=== PATIENT | male | born 1980 ===

== ENCOUNTER 2017-03-30 10:28 | Emergency (ER) | payer OTHER ==
[2017-03-30] MEDS ORDERED: Sodium Chloride 0.9% 1,000 ML IV ONE (10:54)
--- NOTE | 2017-03-30 11:05 | C.PDOC ---
History Of Present Illness 36 yr old male with PMHx of diabetes, presents to the ER with complaints of chest pain and palpitations since yesterday. Patient reports he has been drinking beer for the past 2 days but denies daily use of alcohol, of ho of alcohol abuse. pt also reports mason but denies trauma. . Patient denies fever, nausea, vomiting, abdominal pain, weakness or numbness. Contrary to triage, patient denies having low blood sugar at home, accu check in ED is 287. pt instead reports "was unsure if sugar was high or low". denies long acting insulin usage. info obtain via tranlator Time Seen by Provider: 03/30/17 10:48 Chief Complaint (Nursing): Chest Pain History Per: Patient History/Exam Limitations: no limitations Onset/Duration Of Symptoms: Days (1) Past Medical History Reviewed: Historical Data, Nursing Documentation, Vital Signs Vital Signs: Last Vital Signs Temp 98.8 F 03/30/17 13:02 Pulse 85 03/30/17 13:02 Resp 18 03/30/17 13:02 BP 124/73 03/30/17 13:02 Pulse Ox 98 03/30/17 13:14 Family History: States: No Known Family Hx - Social History Hx Alcohol Use: Yes Hx Substance Use: No - Immunization History Hx Tetanus Toxoid Vaccination: No Hx Influenza Vaccination: No Hx Pneumococcal Vaccination: No Review Of Systems Except As Marked, All Systems Reviewed And Found Negative. Constitutional: Negative for: Fever Cardiovascular: Positive for: Chest Pain, Palpitations Gastrointestinal: Negative for: Nausea, Vomiting, Abdominal Pain Neurological: Negative for: Weakness, Numbness Physical Exam - Physical Exam Appears: Non-toxic, No Acute Distress Skin: Warm, Dry Head: Atraumatic, Normacephalic Oral Mucosa: Moist Neck: Normal, Normal ROM, Supple Chest: Symmetrical, No Tenderness Cardiovascular: Rhythm Regular, No Murmur Respiratory: Normal Breath Sounds, No Rales, No Rhonchi, No Stridor, No Wheezing Extremity: Normal ROM, No Swelling Neurological/Psych: Oriented x3, Normal Speech, Normal Motor ED Course And Treatment - Laboratory Results Result Diagrams: 03/30/17 11:24 03/30/17 11:24 ECG: Interpreted By Me, Viewed By Me ECG Rhythm: Sinus Rhythm ECG Interpretation: Normal Rate From EC (BPM) O2 Sat by Pulse Oximetry: 98 (RA) Pulse Ox Interpretation: Normal - Other Rad CXR X-Ray: Viewed By Me, Read By Radiologist Interpretation: PROCEDURE: CHEST RADIOGRAPH, 1 VIEW. HISTORY: chest pain. COMPARISON: None available. FINDINGS: LUNGS: Mild bibasilar atelectasis. PLEURA: No pneumothorax or pleural fluid seen. CARDIOVASCULAR: Normal. OSSEOUS STRUCTURES: No significant abnormalities. VISUALIZED UPPER ABDOMEN: Normal. OTHER FINDINGS: None. IMPRESSION: Mild bibasilar atelectasis - CT Scan/US CT - Head Other Rad Studies (CT/US): Read By Radiologist, Radiology Report Reviewed CT/US Interpretation: PROCEDURE: CT HEAD WITHOUT CONTRAST. HISTORY: Headache. COMPARISON: None available. TECHNIQUE: Axial computed tomography images were obtained through the head/brain without intravenous contrast. Radiation dose: Total exam DLP = 981.84 mGy-cm. This CT exam was performed using one or more of the following dose reduction techniques: Automated exposure control, adjustment of the mA and/or kV according to patient size, and/ or use of iterative reconstruction technique. FINDINGS: HEMORRHAGE: No acute parenchymal, subarachnoid or extra-axial hemorrhage. BRAIN: No mass effect or edema. No atrophy or chronic microvascular ischemic changes. VENTRICLES: Unremarkable. No hydrocephalus. CALVARIUM: Unremarkable. PARANASAL SINUSES: Unremarkable as visualized. . Minimal mucosal thickening noted within the sphenoid sinus. MASTOID AIR CELLS: Unremarkable as visualized. No inflammatory changes. OTHER FINDINGS: None. IMPRESSION: No acute intracranial hemorrhage. Medical Decision Making Medical Decision Making: pt with atypcial cp/mason/palpiations x 1 day- labs imaging pending PLAN: * CT - Head * CXR * EKG * Alcohol Serum * Drug Screen * Troponin * CBC * CMP * Urinalysis * Sodium Chloride IV * 120:pt reasseseD states pain/palpitations resolved. mason resolved. offered observation in hospital for cp. pt declines specifically requesting d/c. willl dc advise outpt f/u. no tremors noted. neuro intact. Disposition - Disposition Referrals: [facility] [Outside] [facility] [Outside] Ye Platt MD [Staff Provider] - Nolan Rodas MD [Staff Provider] - Disposition: HOME/ ROUTINE Disposition Time: 13:20 Condition: STABLE Additional Instructions: please follow up with your doctor/clinic and specialist. return to er with worsening symptoms or concerns Instructions: Chest Pain (ED), Palpitations (ED), Acute Headache (ED) Print Language: GIBRALTARIAN - Clinical Impression Clinical Impression: Chest pain, Palpitations, Headache - Addisonibe Statement The provider has reviewed the documentation as recorded by the Tyler Urbano Provider Attestation: All medical record entries made by the Tyler were at my direction and personally dictated by me. I have reviewed the chart and agree that the record accurately reflects my personal performance of the history, physical exam, medical decision making, and the department course for this patient. I have also personally directed, reviewed, and agree with the discharge instructions and disposition.
[2017-03-30 11:28] LABS: BASO % 0.5 % (0.0-2.0); EOS % 0.1 % (0.0-4.0); HEMOGLOBIN 15.7 g/dL (12.0-18.0); LYMPH # 1.4 K/uL (1.0-4.3); MEAN CELL VOLUME 86.2 fL (80.0-94.0); MEAN CORPUSCULAR HEMOGLOBIN 29.3 pg (27.0-31.0); MEAN PLATELET VOLUME 7.3 fL (7.2-11.7); MONO # 0.3 K/uL (0.0-0.8); MONO % 4.3 % (0.0-10.0); NEUT # 6.3 K/uL (1.8-7.0); NEUT % 78.1 % (50.0-75.0); RBC 5.36 Mil/uL (4.40-5.90); RED CELL DISTRIBUTION WIDTH 13.5 % (11.5-14.5); WHITE BLOOD COUNT 8.1 K/uL (4.8-10.8)
[2017-03-30 11:28] LABS: URINE BILIRUBIN NEGATIVE (NEGATIVE); URINE BLOOD NEGATIVE (NEGATIVE); URINE CLARITY Clear (Clear); URINE COLOR Straw (YELLOW); URINE GLUCOSE (UA) 3+ mg/dL (Normal); URINE LEUKOCYTE ESTERASE NEG Leu/uL (Negative); URINE NITRATE NEGATIVE (NEGATIVE); URINE PROTEIN NEGATIVE (NEGATIVE); URINE UROBILINOGEN NORMAL mg/dL (0.2-1.0)
[2017-03-30] MEDS ORDERED: Sodium Chloride 0.9% 1,000 ML ONE (11:28)
[2017-03-30 11:34] LABS: BARBITURATES, UR NEGATIVE (NEGATIVE)
[2017-03-30 11:35] LABS: BENZODIAZEPINES, UR NEGATIVE (NEGATIVE)
[2017-03-30 11:36] LABS: ALBUMIN 4.1 g/dL (3.5-5.0)
[2017-03-30 11:37] LABS: OPIATES, UR NEGATIVE (NEGATIVE)
[2017-03-30 11:38] LABS: PHENCYCLIDINE, UR NEGATIVE (NEGATIVE)
[2017-03-30 11:39] LABS: ALB/GLOB RATIO 1.4 (1.0-2.1); ALT/SGPT 48 U/L (21-72); AST/SGOT 40 U/L (17-59); BLOOD UREA NITROGEN 6 mg/dL (9-20); CALCIUM 8.2 mg/dl (8.6-10.4); GFR AFRICAN-AMERICAN > 60; GFR NON-AFRICAN AMERICAN > 60; LIPASE 146 U/L (23-300)
--- NOTE | 2017-03-30 12:11 | RAD ---
PROCEDURE: CHEST RADIOGRAPH, 1 VIEW HISTORY: chest pain COMPARISON: None available. FINDINGS: LUNGS: Mild bibasilar atelectasis PLEURA: No pneumothorax or pleural fluid seen. CARDIOVASCULAR: Normal. OSSEOUS STRUCTURES: No significant abnormalities. VISUALIZED UPPER ABDOMEN: Normal. OTHER FINDINGS: None. IMPRESSION: Mild bibasilar atelectasis
[2017-03-30 13:03] VITALS: BP 124/73; PULSE 85; RESP 18; TEMP 98.8
--- NOTE | 2017-03-30 13:13 | CT ---
PROCEDURE: CT HEAD WITHOUT CONTRAST. HISTORY: Headache COMPARISON: None available. TECHNIQUE: Axial computed tomography images were obtained through the head/brain without intravenous contrast. Radiation dose: Total exam DLP = 981.84 mGy-cm. This CT exam was performed using one or more of the following dose reduction techniques: Automated exposure control, adjustment of the mA and/or kV according to patient size, and/or use of iterative reconstruction technique. FINDINGS: HEMORRHAGE: No acute parenchymal, subarachnoid or extra-axial hemorrhage. BRAIN: No mass effect or edema. No atrophy or chronic microvascular ischemic changes. VENTRICLES: Unremarkable. No hydrocephalus. CALVARIUM: Unremarkable. PARANASAL SINUSES: Unremarkable as visualized. . Minimal mucosal thickening noted within the sphenoid sinus MASTOID AIR CELLS: Unremarkable as visualized. No inflammatory changes. OTHER FINDINGS: None. IMPRESSION: No acute intracranial hemorrhage.
[2017-03-30 13:14] VITALS: O2SAT 98
--- NOTE | 2017-04-02 12:05 | CARD ---
APPROVED REPORT EKG Measurement Heart [id number] <Conclusion> Normal sinus rhythm Normal ECG
== END 2017-03-30 13:29 | disposition home or self-care (01) ==
LOC: C.ER 10:28
DX: R07.9 Chest pain, unspecified (principal); R51 Headache; R00.2 Palpitations
CPT/HCPCS: 70450; 71010; 80053; 81001; 82948; 83690; 84484; 85025; 85730; 93005; 96360; 99285; G0480; J7040

== ENCOUNTER 2018-08-22 19:26 | Emergency (ER) | payer SELFPAY ==
[2018-08-22 19:46] VITALS: TEMP 98
[2018-08-22] MEDS ORDERED: Aspirin 325 mg EC Tablets PO STA (20:06)
--- NOTE | 2018-08-22 20:06 | C.PDOC ---
History Of Present Illness 38 y/o male presents to the ED complaining of nausea, vomiting, and intermittent chest pain on and off for 3 days. Patient admits that he has been drinking heavily today. Tonight patient vomited 3-4 times, which was non-bloody and non- bilious. Denies any fever or chills. Patient also developed some diarrhea. Time Seen by Provider: 08/22/18 20:06 Chief Complaint (Nursing): Chest Pain History Per: Patient History/Exam Limitations: no limitations Onset/Duration Of Symptoms: Days, Intermittent Episodes Current Symptoms Are (Timing): Still Present Past Medical History Reviewed: Historical Data, Nursing Documentation, Vital Signs Vital Signs: Last Vital Signs Temp 98 F 08/22/18 19:42 Pulse 101 H 08/22/18 19:42 Resp 20 08/22/18 19:42 BP 156/87 H 08/22/18 19:42 Pulse Ox 97 08/22/18 19:42 Family History: States: No Known Family Hx - Social History Hx Alcohol Use: Yes Hx Substance Use: No - Immunization History Hx Tetanus Toxoid Vaccination: No Hx Influenza Vaccination: No Hx Pneumococcal Vaccination: No Review Of Systems Constitutional: Negative for: Fever, Chills Cardiovascular: Positive for: Chest Pain Respiratory: Negative for: Shortness of Breath Gastrointestinal: Positive for: Nausea, Vomiting. Negative for: Diarrhea, Hematochezia, Hematemesis Neurological: Negative for: Weakness, Numbness, Dizziness Physical Exam - Physical Exam Appears: Non-toxic, No Acute Distress Skin: Warm, Dry Head: Normacephalic Eye(s): bilateral: Normal Inspection Oral Mucosa: Moist Neck: Trachea Midline, Supple Chest: Tenderness (Reproducible left chest wall tenderness) Cardiovascular: Rhythm Regular Respiratory: No Rales, No Rhonchi, No Wheezing Gastrointestinal/Abdominal: Soft, No Tenderness, No Distention Extremity: Bilateral: Normal Color And Temperature, Normal ROM Pulses: Left Dorsalis Pedis: Normal, Right Dorsalis Pedis: Normal Neurological/Psych: Oriented x3 ED Course And Treatment - Laboratory Results Result Diagrams: 08/22/18 20:19 08/22/18 20:19 ECG: Interpreted By Me, Viewed By Me ECG Rhythm: Sinus Rhythm (92), Nonspecific Changes O2 Sat by Pulse Oximetry: 97 Pulse Ox Interpretation: Normal - Radiology CXR: Interpreted by Me, Viewed By Me CXR Interpretation: No: Infiltrates, Fracture, Pnemothorax Progress Note: Blood work and urine sent to the lab. EKG, CXR, VBG ordered and reviewed. Administered PO Aspirin and IV Protonix. Reevaluation Time: 21:32 (pt pulled out his iv. refuses to stay. wants to go home. Understands the risks , including as I've explained at length,but pt got dressed and left. Refused to sign any AMA papers) Disposition Counseled Patient/Family Regarding: Studies Performed, Diagnosis - Disposition Referrals: [facility] [Outside] Disposition: ELOPEMENT - ER ONLY Disposition Time: 20:06 Condition: GOOD Instructions: Alcohol Abuse and Alcoholism (DC) Forms: [employer] ([place]epali) - Clinical Impression Clinical Impression: Alcohol intoxication, Nausea & vomiting - Scribe Statement The provider has reviewed the documentation as recorded by the Tyler Mcfarland Provider Attestation: All medical record entries made by the Addisonibdimitri were at my direction and personally dictated by me. I have reviewed the chart and agree that the record accurately reflects my personal performance of the history, physical exam, medical decision making, and the department course for this patient. I have also personally directed, reviewed, and agree with the discharge instructions and disposition.
[2018-08-22 20:25] LABS: BASO % 0.2 % (0.0-2.0); EOS % 0.1 % (0.0-4.0); HEMOGLOBIN 14.9 g/dL (12.0-18.0); LYMPH # 0.8 K/uL (1.0-4.3); LYMPH % 13.6 % (20.0-40.0); MEAN CELL VOLUME 87.5 fL (80.0-94.0); MEAN CORPUSCULAR HEMOGLOBIN 30.4 pg (27.0-31.0); MEAN CORPUSCULAR HGB CONC 34.7 g/dL (33.0-37.0); MEAN PLATELET VOLUME 7.2 fL (7.2-11.7); MONO # 0.4 K/uL (0.0-0.8); MONO % 6.5 % (0.0-10.0); NEUT # 4.8 K/uL (1.8-7.0); NEUT % 79.6 % (50.0-75.0); NRBC % 0.1 % (0.0-2.0); RBC 4.9 Mil/uL (4.40-5.90); RED CELL DISTRIBUTION WIDTH 14.2 % (11.5-14.5)
[2018-08-22 20:34] LABS: INR 1.1; PROTHROMBIN TIME 11.8 SECONDS (9.7-12.2)
[2018-08-22 20:36] LABS: ALB/GLOB RATIO 1.6 (1.0-2.1); ALBUMIN 4.7 g/dL (3.5-5.0); ALT/SGPT 315 U/L (21-72); AST/SGOT 319 U/L (17-59); BLOOD UREA NITROGEN 7 mg/dL (9-20); CALCIUM 8.3 mg/dl (8.6-10.4); GFR NON-AFRICAN AMERICAN > 60; LIPASE 414 U/L (23-300)
[2018-08-22 20:55] LABS: VENOUS BLOOD GAS BASE EXCESS 5.5 mmol/L (0.0-2.0); VENOUS BLOOD GAS PCO2 51 mmHg (40-60); VENOUS BLOOD GAS PO2 25 mm/Hg (30-55)
[2018-08-22] MEDS ORDERED: Sodium Chloride 0.9% 2,000 ML IV ONE (21:02)
[2018-08-22 21:11] LABS: URINE BILIRUBIN NEGATIVE (NEGATIVE); URINE CLARITY Clear (Clear); URINE COLOR Straw (YELLOW); URINE GLUCOSE (UA) 3+ mg/dL (Normal); URINE LEUKOCYTE ESTERASE NEG Leu/uL (Negative); URINE PROTEIN 1+ mg/dL (NEGATIVE); URINE UROBILINOGEN NORMAL mg/dL (0.2-1.0)
[2018-08-22 21:25] LABS: BARBITURATES, UR NEGATIVE (NEGATIVE); BENZODIAZEPINES, UR NEGATIVE (NEGATIVE); OPIATES, UR NEGATIVE (NEGATIVE); PHENCYCLIDINE, UR NEGATIVE (NEGATIVE)
[2018-08-22 21:28] LABS: URINE BLOOD TRACE (NEGATIVE)
[2018-08-22 21:48] VITALS: BP 133/70; PULSE 87; RESP 18
[2018-08-22 22:00] VITALS: O2SAT 97
--- NOTE | 2018-08-23 09:53 | RAD ---
Chest x-ray single frontal view HISTORY: Chest pain. COMPARISON: 03/30/2017 FINDINGS: No focal infiltrate or effusion. Heart size within normal limits. IMPRESSION: No focal infiltrate or effusion.
--- NOTE | 2018-08-23 22:19 | CARD ---
APPROVED REPORT Date of service: 08/22/2018 EKG Measurement Heart [id number] <Conclusion> Normal sinus rhythm Normal ECG
== END 2018-08-22 21:46 | disposition left against medical advice (07) ==
LOC: C.ER 19:26
DX: F10.129 Alcohol abuse with intoxication, unspecified (principal); Y90.8 Blood alcohol level of 240 mg/100 ml or more; R11.2 Nausea with vomiting, unspecified
CPT/HCPCS: 71045; 80053; 81001; 82009; 82803; 82948; 83690; 84484; 85025; 85610; 85730; 93005; 96374; 99284; C9113; G0480; J7030